=== PATIENT | male | born 1990 ===

== ENCOUNTER 2018-04-09 07:26 | Emergency (ER) | payer OTHER ==
[2018-04-09 07:48] VITALS: O2SAT 100
--- NOTE | 2018-04-09 08:09 | C.PDOC ---
History Of Present Illness 28 year old male presents to the ED complaining of generalized weakness, appetite loss, thirst and urinary frequency for 4 months. He complains of weight loss and reports he is down 2 sizes in pants. Patient also complains of left lower abdominal pain for 3 days. He denies any heavy lifting, trauma or injuries. He denies any hematuria, dysuria, incontinence, fever, chills, nausea , vomiting, or diarrhea,. Time Seen by Provider: 04/09/18 07:37 Chief Complaint (Nursing): Medical Clearance History Per: Patient History/Exam Limitations: no limitations Onset/Duration Of Symptoms: Days Current Symptoms Are (Timing): Still Present Past Medical History Reviewed: Historical Data, Nursing Documentation, Vital Signs Vital Signs: Last Vital Signs Temp 97.7 F 04/09/18 07:46 Pulse 52 L 04/09/18 07:46 Resp 20 04/09/18 07:46 BP 159/94 H 04/09/18 07:46 Pulse Ox 100 04/09/18 08:14 - Medical History PMH: No Chronic Diseases Surgical History: No Surg Hx Family History: States: No Known Family Hx - Social History Hx Tobacco Use: Yes (6ppd for 12 years ) Hx Alcohol Use: Yes Hx Substance Use: No - Immunization History Hx Tetanus Toxoid Vaccination: No Hx Influenza Vaccination: No Hx Pneumococcal Vaccination: No Review Of Systems Constitutional: Positive for: Weakness, Weight loss. Negative for: Fever, Chills Respiratory: Negative for: Cough Gastrointestinal: Positive for: Abdominal Pain. Negative for: Nausea, Vomiting , Diarrhea Genitourinary: Positive for: Frequency. Negative for: Dysuria, Incontinence, Hematuria Physical Exam - Physical Exam Appears: Non-toxic, No Acute Distress Skin: Warm, Dry Head: Atraumatic, Normacephalic Eye(s): bilateral: Normal Inspection Nose: Normal Oral Mucosa: Moist Neck: Supple Chest: Symmetrical Cardiovascular: Rhythm Regular Respiratory: Normal Breath Sounds, No Rales, No Rhonchi, No Wheezing Gastrointestinal/Abdominal: Soft, No Tenderness, No Guarding, No Rebound, Other (Ecchymotic lesion noted to the right upper quadrant, nontender ) Extremity: Normal ROM Neurological/Psych: Oriented x3, Normal Speech Gait: Steady ED Course And Treatment O2 Sat by Pulse Oximetry: 100 (RA) Pulse Ox Interpretation: Normal Medical Decision Making Medical Decision Making: Impression: Medical clearance Orders: - Labs - UA Disposition - Disposition Forms: [employer] (C[place] Rican) - PA / ROUGH CARPENTER / Resident Statement MD/DO has reviewed & agrees with the documentation as recorded. - Scribe Statement The provider has reviewed the documentation as recorded by the Scribe Milady Shi All medical record entries made by the Scribe were at my direction and personally dictated by me. I have reviewed the chart and agree that the record accurately reflects my personal performance of the history, physical exam, medical decision making, and the department course for this patient. I have also personally directed, reviewed, and agree with the discharge instructions and disposition.
[2018-04-09 08:20] LABS: BASO % 0.3 % (0.0-2.0); EOS % 0.7 % (0.0-4.0); LYMPH % 46.5 % (20.0-40.0); MEAN CELL VOLUME 85.7 fL (80.0-94.0); MEAN CORPUSCULAR HEMOGLOBIN 29.9 pg (27.0-31.0); MEAN CORPUSCULAR HGB CONC 34.8 g/dL (33.0-37.0); MEAN PLATELET VOLUME 8.6 fL (7.2-11.7); MONO # 0.4 K/uL (0.0-0.8); MONO % 5.6 % (0.0-10.0); NEUT % 46.9 % (50.0-75.0); NRBC % 0.1 % (0.0-2.0); RBC 5.35 Mil/uL (4.40-5.90); RED CELL DISTRIBUTION WIDTH 12.7 % (11.5-14.5); WHITE BLOOD COUNT 6.4 K/uL (4.8-10.8)
[2018-04-09 08:25] LABS: URINE BILIRUBIN NEGATIVE (NEGATIVE); URINE BLOOD NEGATIVE (NEGATIVE); URINE CLARITY Clear (Clear); URINE COLOR Straw (YELLOW); URINE GLUCOSE (UA) 3+ mg/dL (Normal); URINE LEUKOCYTE ESTERASE NEG Leu/uL (Negative); URINE PROTEIN NEGATIVE (NEGATIVE); URINE UROBILINOGEN NORMAL mg/dL (0.2-1.0)
[2018-04-09 08:50] LABS: ALB/GLOB RATIO 1.7 (1.0-2.1); ALBUMIN 4.9 g/dL (3.5-5.0); ALT/SGPT 29 U/L (21-72); AST/SGOT 20 U/L (17-59); BLOOD UREA NITROGEN 10 mg/dL (9-20); CALCIUM 9.8 mg/dl (8.6-10.4); GFR AFRICAN-AMERICAN > 60; GFR NON-AFRICAN AMERICAN > 60
[2018-04-09] MEDS: Sodium Chloride 0.9% 1,000 ML IV ONE (08:51)
--- NOTE | 2018-04-09 09:01 | C.PDOC ---
History Of Present Illness 28 year old male presents to the ED complaining of generalized weakness, appetite loss, increased thirst and urinary frequency for 4 months. He complains of weight loss and reports he is down 2 sizes in pants. Patient also complains of left side pain for 3 days. He denies any heavy lifting, trauma or injuries. He denies any hematuria, dysuria, incontinence, fever, chills, nausea , vomiting, or diarrhea. Patient reports he was diagnosed with pre-diabetes and cholesterol problem 4 years ago but he never followed up. Time Seen by Provider: 04/09/18 07:37 Chief Complaint (Nursing): Medical Clearance History Per: Patient History/Exam Limitations: no limitations Onset/Duration Of Symptoms: Days Current Symptoms Are (Timing): Still Present Past Medical History Reviewed: Historical Data, Nursing Documentation, Vital Signs Vital Signs: Last Vital Signs Temp 97.5 F L 04/09/18 11:18 Pulse 49 L 04/09/18 11:18 Resp 18 04/09/18 11:18 BP 138/90 04/09/18 11:18 Pulse Ox 100 04/09/18 11:18 - Medical History Other PMH: Pre-diabetes Surgical History: No Surg Hx Family History: States: No Known Family Hx - Social History Hx Alcohol Use: Yes Hx Substance Use: No - Immunization History Hx Tetanus Toxoid Vaccination: No Hx Influenza Vaccination: No Hx Pneumococcal Vaccination: No Review Of Systems Constitutional: Positive for: Weakness, Weight loss, Other (Thirst). Negative for: Fever, Chills Gastrointestinal: Positive for: Abdominal Pain (Left lower quadrant ). Negative for: Nausea, Vomiting, Diarrhea Genitourinary: Positive for: Frequency. Negative for: Dysuria, Incontinence, Hematuria Neurological: Negative for: Headache, Dizziness Physical Exam - Physical Exam Appears: Non-toxic, No Acute Distress Skin: Warm, Dry, No Rash Head: Atraumatic, Normacephalic Eye(s): bilateral: Normal Inspection, EOMI Nose: Normal Oral Mucosa: Moist Throat: Normal, No Erythema, No Exudate, No Drooling Neck: Supple Chest: Symmetrical Cardiovascular: Rhythm Regular, No Murmur Respiratory: Normal Breath Sounds, No Rales, No Rhonchi, No Wheezing Gastrointestinal/Abdominal: Soft, No Tenderness, No Distention, No Guarding, No Rebound, Other (old ecchymotic lesion noted to the right upper quadrant, nontender ) Back: Normal Inspection, No Vertebral Tenderness, No Paraspinal Tenderness Extremity: Bilateral: Atraumatic, No Pedal Edema, Normal Color And Temperature, Normal ROM Neurological/Psych: Oriented x3, Normal Speech Gait: Steady ED Course And Treatment - Laboratory Results Result Diagrams: 04/09/18 08:11 04/09/18 08:11 Lab Interpretation: Abnormal (hyperglycemia) O2 Sat by Pulse Oximetry: 100 (RA) Pulse Ox Interpretation: Normal Medical Decision Making Medical Decision Making: Impression: malaise, fatigue, increase thirst and urination Orders: - Labs - UA Progress: Patient assessed and examined. Blood work done. Urine collected and sent to the lab for analysis. Results show blood glucose is elevated >400, no urine ketones. Patient further treated with Insulin and given IV fluids. 1030 Accucheck is now [phone] Patient re-evaluated and is resting comfortably in no distress. I explained results to the patient and provide copy of lab report. Patient to be discharged home with Rx for Metformin. I advised patient to follow up in the clinic for further care. He agreed with plan and expressed understanding. Patient stable for discharge. Disposition Counseled Patient/Family Regarding: Studies Performed, Diagnosis, Need For Followup, Rx Given - Disposition Referrals: Wendy Erwin MD [Staff Provider] - Disposition: HOME/ ROUTINE Disposition Time: 10:45 Condition: STABLE Additional Instructions: lizett laboratorios muestran katlyn glucosa que indica diabetes Por favor, alejandro los materiales sobre diabetes, plan de dieta y medicacin metformina necesitas christian metformina dos veces al da es importante que realice un seguimiento en la clnica para recibir ms atenci n sobre damon diabetes y si tiene alguna pregunta Prescriptions: metFORMIN [glucOPHAGE] 500 mg PO BID #14 tab Instructions: Diabetes Diet , Diabetes Type 2 (DC), Metformin Print Language: PARAGUAYAN - POA Present On Arrival: Poor Glycemic Control - Clinical Impression Clinical Impression: Diabetes mellitus, Diabetes education, encounter for - 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 - Scribe Statement The provider has reviewed the documentation as recorded by the Scribe Milady Shi All medical record entries made by the Scribe were at my direction and personally dictated by me. I have reviewed the chart and agree that the record accurately reflects my personal performance of the history, physical exam, medical decision making, and the department course for this patient. I have also personally directed, reviewed, and agree with the discharge instructions and disposition.
[2018-04-09] MEDS: (Novolin R) Insulin Human Regular 100 units/ml vial IV ONE (09:23)
[2018-04-09] MEDS ORDERED: (Novolin R) Insulin Human Regular 100 units/ml vial ONE (09:24)
[2018-04-09 11:20] VITALS: BP 138/90; PULSE 49; RESP 18; TEMP 97.5
== END 2018-04-09 11:20 | disposition home or self-care (01) ==
LOC: C.ER 07:26
DX: E11.9 Type 2 diabetes mellitus without complications (principal)
CPT/HCPCS: 80053; 81001; 82948; 85025; 96360; 99284; J7030

== ENCOUNTER 2018-12-19 04:51 | Emergency (ER) | payer OTHER ==
[2018-12-19 05:11] VITALS: O2SAT 99
--- NOTE | 2018-12-19 05:42 | C.PDOC ---
History Of Present Illness 28 year old male presents to the ED c/o fever, chills, generalized malaise, headache and nausea since he woke up. 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 Patient denies vomit, diarrhea, SOB, wheezing, rash, recent travel, sick contacts. Time Seen by Provider: 12/19/18 05:12 Chief Complaint (Nursing): Fever History Per: Patient History/Exam Limitations: no limitations Onset/Duration Of Symptoms: Hrs Current Symptoms Are (Timing): Still Present Location Of Pain: Throat, Sinus/es, Diffuse Myalgias, Headache Sick Contacts (Context): None Associated Symptoms: Fever, Chills, Sinus Drainage, Myalgias, Nasal Congestion, Nausea Ear Symptoms: Bilateral: None Recent travel outside of the [place]: No Additional History Per: Patient Past Medical History Reviewed: Historical Data, Nursing Documentation, Vital Signs Vital Signs: Last Vital Signs Temp 99.2 F 12/19/18 05:08 Pulse 96 H 12/19/18 05:08 Resp 20 12/19/18 05:08 BP 122/72 12/19/18 05:08 Pulse Ox 99 12/19/18 05:08 - Medical History PMH: No Chronic Diseases Surgical History: No Surg Hx Family History: States: Unknown Family Hx - Social History Hx Alcohol Use: Yes Hx Substance Use: No - Immunization History Hx Tetanus Toxoid Vaccination: No Hx Influenza Vaccination: No Hx Pneumococcal Vaccination: No Review Of Systems Constitutional: Positive for: Fever, Chills, Malaise ENT: Positive for: Nose Discharge, Nose Congestion. Negative for: Throat Pain Respiratory: Negative for: Cough, Shortness of Breath Gastrointestinal: Positive for: Nausea. Negative for: Vomiting, Abdominal Pain Skin: Negative for: Rash Neurological: Positive for: Headache. Negative for: Weakness, Numbness, Dizziness Physical Exam - Physical Exam Appears: Non-toxic, No Acute Distress Skin: Normal Color, Warm, Dry Head: Atraumatic, Normacephalic Eye(s): bilateral: Normal Inspection Ear(s): Bilateral: Normal Oral Mucosa: Moist Throat: Normal, No Erythema, No Exudate Neck: Normal ROM, Supple Chest: Symmetrical Cardiovascular: Rhythm Regular Respiratory: Normal Breath Sounds, No Rales, No Rhonchi, No Wheezing Gastrointestinal/Abdominal: Soft, No Tenderness, No Distention Extremity: Normal ROM, No Tenderness, No Swelling Neurological/Psych: Oriented x3, Normal Speech, Normal Cognition Gait: Steady ED Course And Treatment O2 Sat by Pulse Oximetry: 99 (ON RA) Pulse Ox Interpretation: Normal Progress Note: Plan: - Motrin 600 mg PO. - UA. Patient reports improvement after medications were given. Patient afrebrile, breathing without difficulty. Patient advised on use of antipyrectics for fever control. Patient advised to follow up with PMD. Disposition Counseled Patient/Family Regarding: Diagnosis, Need For Followup, Rx Given - Disposition Referrals: 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 - Scribe Statement The provider has reviewed the documentation as recorded by the Scribe Frank Coronado All medical record entries made by the Scribe were at my direction and personally dictated by me. I have reviewed the chart and agree that the record accurately reflects my personal performance of the history, physical exam, medical decision making, and the department course for this patient. I have also personally directed, reviewed, and agree with the discharge instructions and di sposition.
[2018-12-19 06:34] LABS: URINE BILIRUBIN NEGATIVE (NEGATIVE); URINE BLOOD NEGATIVE (NEGATIVE); URINE CLARITY Clear (Clear); URINE COLOR Yellow (YELLOW); URINE GLUCOSE (UA) 3+ mg/dL (Normal); URINE LEUKOCYTE ESTERASE NEG Leu/uL (Negative); URINE PROTEIN NEGATIVE (NEGATIVE); URINE UROBILINOGEN NORMAL mg/dL (0.2-1.0)
[2018-12-19 07:04] VITALS: BP 128/72; PULSE 90; RESP 16; TEMP 98.9
== END 2018-12-19 07:21 | disposition home or self-care (01) ==
LOC: C.ER 04:51
DX: J11.1 Influenza due to unidentified influenza virus with other respiratory manifestations (principal); E11.9 Type 2 diabetes mellitus without complications; Z79.84 Long term (current) use of oral hypoglycemic drugs